=== PATIENT | female | born 2000 | race Caucasian/White ===

== ENCOUNTER 2022-12-30 14:12 | Day surgery (SDC) | payer OTHER ==
[2022-12-30 14:40] VITALS: BMI 23.0
[2022-12-30 15:50] LABS: Bilirubin Neg (Negative); Blood, Urine 25 (Negative); Clarity Cloudy (Clear); Glucose, Urine (Dipstick) Normal (Negative); Ketone, Urine Negative (Negative); Leukocyte 500 (Negative); Nitrite Negative (Negative); Protein, Urine (Dipstick) 30 mg/dl (Neg-Trace); Specific Gravity, Urine 1.015 (1.005-1.030); Urobilinogen Normal mg/dL (Less than 2)
[2022-12-30] MEDS ORDERED: hydrALAZINE 20 MG/ML VIAL SLOW IVP PRN (15:52)
[2022-12-30 16:04] LABS: Bacteria/HPF 3+ HPF (None Seen); CAUTI Indications for Culture Pregnancy; Mucous/LPF 3+ LPF (<2+)
[2022-12-30 16:06] LABS: Urine Culture Reflex Yes Yes
[2022-12-30] MEDS ORDERED: Nitrofurantoin Monohyd/M-Cryst 100 MG CAP PO SCH ×2 (18:00→21:00)
[2022-12-31] MEDS ORDERED: Nitrofurantoin Monohyd/M-Cryst 100 MG CAP PO SCH (09:00)
== END 2022-12-30 19:02 | disposition home or self-care (01) ==
LOC: CSHLD/OP 14:12
PROVIDERS: ATTEND Obstetrics & Gynecology
DX: O47.03 False labor before 37 completed weeks of gestation, third trimester (principal); O99.891 Other specified diseases and conditions complicating pregnancy; N89.8 Other specified noninflammatory disorders of vagina; R30.0 Dysuria; O99.343 Other mental disorders complicating pregnancy, third trimester; F32.A Depression, unspecified; F41.9 Anxiety disorder, unspecified; Z3A.35 35 weeks gestation of pregnancy; Z79.899 Other long term (current) drug therapy
CPT/HCPCS: 81001; 87086; 87480; 87510; 87660

== ENCOUNTER 2023-01-20 12:05 | Day surgery (SDC) | payer OTHER ==
[2023-01-20] MEDS ORDERED: Acetaminophen 500 MG TAB ONE (12:09)
[2023-01-20] MEDS ORDERED: Iron Sucrose Complex 500 MG in Sodium Chloride 0.9% 250 ML 250 ML IVPB SCH (12:30)
== END 2023-01-20 16:40 | disposition home or self-care (01) ==
LOC: CSHSDC 12:05
PROVIDERS: ATTEND Advanced Practice Midwife
DX: O99.019 Anemia complicating pregnancy, unspecified trimester (principal); D64.9 Anemia, unspecified; Z3A.00 Weeks of gestation of pregnancy not specified
CPT/HCPCS: 96365; 96366; J1756; J7050

== ENCOUNTER 2023-01-23 19:51 | Inpatient (IN) | payer OTHER ==
[2023-01-23 20:09] VITALS: BMI 25.4
[2023-01-23] MEDS ORDERED: hydrALAZINE 20 MG/ML VIAL SLOW IVP PRN ×2 (21:29→22:29)
[2023-01-23] MEDS ORDERED: Methylergonovine 0.2 MG/ML VIAL IM PRN (22:29)
[2023-01-23] MEDS ORDERED: Ondansetron PF 4 MG/2 ML Vial IVP PRN ×3 (22:29→23:33)
[2023-01-23] MEDS ORDERED: Tranexamic Acid 1,000 MG/10 ML VIAL IVP PRN (22:29)
[2023-01-23] MEDS ORDERED: Misoprostol 200 MCG TAB PR PRN (22:29)
[2023-01-23] MEDS ORDERED: Acetaminophen 500 MG TAB PO PRN (22:29)
[2023-01-23] MEDS ORDERED: Carboprost 250 MCG/ML AMP IM PRN (22:29)
[2023-01-23] MEDS ORDERED: Promethazine HCl 25 MG/ML VIAL IM PRN ×2 (22:29→23:33)
[2023-01-23] MEDS ORDERED: Diphenoxylate HCl/Atropine Tablet PO PRN (22:29)
[2023-01-23] MEDS ORDERED: Lactated Ringer's 1,000 ML IV SCH (22:30)
[2023-01-23] MEDS ORDERED: Oxytocin 30 units/NS 500 ML 500 ML IV SCH (22:30)
[2023-01-23 23:01] LABS: Hematocrit 27.6 % (34.9-44.5); Hemoglobin 9.2 g/dL (12.0-15.5); Mean Corpuscular HGB CONC 33.3 g/dL (32.0-36.0); Mean Corpuscular Hemoglobin 27.3 pg (27.0-33.0); Mean Corpuscular Volume 81.9 fl (81.6-98.3); Mean Platelet Volume 11.6 fl (7.4-10.4); Platelet Count 233 10x3/uL (150-450); RBC Distribution Width 12.5 % (11.5-14.5); Red Blood Cell (RBC) Count 3.37 10x6/uL (3.90-5.03); White Blood Cell (WBC) Count 14.1 10x3/uL (3.5-10.5)
[2023-01-23] MEDS ORDERED: Famotidine/PF 20 mg/2ml Vial SLOW IVP PRN (23:29)
[2023-01-23] MEDS ORDERED: Bicitra 30 ML UDCUP PO PRN (23:29)
[2023-01-23 23:30] LABS: HBSAg Index 0.22 S/CO (0-0.99); Hep B Surf Ag - L&D Non-Reactive S/CO (NonReactive)
[2023-01-23] MEDS ORDERED: CEFAZOLIN 2 GM VIAL ONE (23:30)
[2023-01-23] MEDS ORDERED: CEFAZOLIN 2 GM in Sodium Chloride 0.9% 100 ML IVPB SCH (23:30)
[2023-01-23 23:31] LABS: Syphilis Antibody Nonreactive (Nonreactive); Syphilis Antibody Index 0.03 S/CO (<1.00 Non-Reactive)
[2023-01-23] MEDS ORDERED: Naloxone HCl 0.4 mg/ml Vial IV PRN (23:33)
[2023-01-23] MEDS ORDERED: Meperidine HCl/PF 25 MG/ML VIAL SLOW IVP PRN (23:33)
[2023-01-23] MEDS ORDERED: diphenhydrAMINE 50 MG/ML VIAL IVP PRN (23:33)
[2023-01-23] MEDS ORDERED: Moisturizing Cream (Eucerin) 113 GM JAR TOP PRN (23:33)
[2023-01-23] MEDS ORDERED: Morphine 4 MG/ML VIAL SLOW IVP PRN (23:33)
[2023-01-23] MEDS ORDERED: Promethazine HCl 25 MG SUPP PR PRN (23:33)
[2023-01-23] MEDS ORDERED: Naloxone HCl 0.4 mg/ml Vial IVP PRN ×2 (23:33)
[2023-01-23] MEDS ORDERED: fentaNYL 50 mcg/mL 1 mL Vial SLOW IVP PRN (23:33)
[2023-01-23] MEDS ORDERED: Morphine PF 10 MG/10 ML VIAL ONE (23:37)
[2023-01-23] MEDS ORDERED: Oxytocin 10 UNITS/ML VIAL ONE (23:39)
[2023-01-23] MEDS ORDERED: PHENYLEPHRINE-NS 100 MCG/ML 10 ML SYRINGE ONE (23:39)
[2023-01-23] MEDS ORDERED: Ketorolac Tromethamine 30 MG/ML VIAL IVP SCH (23:45)
[2023-01-23] MEDS ORDERED: Communication Order-Pharmacy FS SCH (23:45)
[2023-01-24] MEDS ORDERED: Lactated Ringer's 1,000 ML IV SCH (00:01)
[2023-01-24] MEDS ORDERED: Ondansetron PF 4 MG/2 ML Vial ONE (00:06)
[2023-01-24] MEDS ORDERED: Dexamethasone 4 mg/ml Vial ONE (00:06)
[2023-01-24] MEDS ORDERED: Oxytocin 10 UNITS/ML VIAL ONE (00:13)
[2023-01-24] MEDS ORDERED: hydrALAZINE 20 MG/ML VIAL SLOW IVP PRN (01:21)
[2023-01-24] MEDS ORDERED: Lanolin Ointment 7 GM TUBE TOP PRN (01:21)
[2023-01-24] MEDS ORDERED: Boostrix 0.5 ML (Tdap) VIAL (>/=7 yrs of age) IM ONE ×2 (01:21→09:42)
[2023-01-24] MEDS ORDERED: diphenhydrAMINE 25 MG CAP PO PRN (01:21)
[2023-01-24] MEDS ORDERED: Acetaminophen 325 MG TAB PO PRN (01:21)
[2023-01-24 02:56] LABS: Bilirubin Neg (Negative); Blood, Urine Negative (Negative); Clarity Slightly Cloudy (Clear); Glucose, Urine (Dipstick) Normal (Negative); Ketone, Urine Negative (Negative); Leukocyte 500 (Negative); Nitrite Negative (Negative); Protein, Urine (Dipstick) Negative (Neg-Trace); Specific Gravity, Urine 1.005 (1.005-1.030); Urobilinogen Normal mg/dL (Less than 2)
[2023-01-24 03:09] LABS: RBC/HPF None Seen HPF (0-3)
[2023-01-24 03:10] LABS: Bacteria/HPF 2+ HPF (None Seen); Squamous Epithelial 0-3 HPF (0-3)
[2023-01-24] MEDS: Docusate 100 MG CAP PO SCH ×2 (08:48→21:14)
[2023-01-24] MEDS: Prenatal Vitamin 1 TAB PO SCH (08:48)
[2023-01-24] MEDS ORDERED: Ondansetron PF 4 MG/2 ML Vial IVP PRN (09:42)
[2023-01-24] MEDS ORDERED: Bisacodyl 10 MG SUPP PR PRN (09:42)
[2023-01-24] MEDS ORDERED: Misoprostol 200 MCG TAB PR PRN (09:42)
[2023-01-24] MEDS ORDERED: Simethicone Chewable 80 MG TAB PO PRN (09:42)
[2023-01-24] MEDS ORDERED: Ferrous Gluconate 324 MG TAB PO SCH (10:00)
[2023-01-24] MEDS ORDERED: HYDROcodone/Acetaminophen 5/325 mg Tablet PO PRN (11:45)
[2023-01-24] MEDS: Ketorolac Tromethamine 30 MG/ML VIAL IVP PRN ×2 (12:16→18:20)
[2023-01-24] MEDS ORDERED: Gentamicin Sulfate 320 MG in Sodium Chloride 0.9% 100 ML IVPB SCH (14:00)
[2023-01-24 14:09] LABS: #Eosinphils 0.1 10x3/uL (0.0-0.5); #Monocytes 1.6 10x3/uL (0.0-1.1); #Neutrophils 16.7 10x3/uL (1.5-8.4); %Basophils 0.1 % (0.0-2.0); %Eosinophils 0.3 % (0.0-6.0); %Lymphocytes 11.7 % (18.0-47.0); %Monocytes 7.5 % (0.0-10.0); %Neutrophils 79.9 % (40.0-75.0); Hematocrit 20.3 % (34.9-44.5); Hemoglobin 6.9 g/dL (12.0-15.5); Mean Corpuscular Volume 82.5 fl (81.6-98.3); Mean Platelet Volume 11.6 fl (7.4-10.4); Platelet Count 204 10x3/uL (150-450); RBC Distribution Width 12.5 % (11.5-14.5); Red Blood Cell (RBC) Count 2.46 10x6/uL (3.90-5.03); White Blood Cell (WBC) Count 20.9 10x3/uL (3.5-10.5)
[2023-01-24] MEDS: Clindamycin/D5W 900 MG in Premix 1 BAG IVPB SCH ×2 (14:15→21:14)
[2023-01-24] MEDS: SODIUM CHLORIDE 0.9% IVPB SCH (14:53)
[2023-01-24] MEDS: GENTAMICIN SULFATE IVPB SCH (14:53)
[2023-01-24 17:45] LABS: Bilirubin Neg (Negative); Blood, Urine Negative (Negative); Clarity Clear (Clear); Glucose, Urine (Dipstick) Normal (Negative); Ketone, Urine Negative (Negative); Leukocyte Negative (Negative); Nitrite Negative (Negative); Protein, Urine (Dipstick) Negative (Neg-Trace); Urobilinogen Normal mg/dL (Less than 2)
[2023-01-25] MEDS: HYDROcodone/Acetaminophen 5/325 mg Tablet PO PRN ×2 (00:15→21:42)
[2023-01-25 04:18] LABS: #Eosinphils 0.1 10x3/uL (0.0-0.5); #Monocytes 1.2 10x3/uL (0.0-1.1); #Neutrophils 11.6 10x3/uL (1.5-8.4); %Basophils 0.2 % (0.0-2.0); %Eosinophils 0.7 % (0.0-6.0); %Monocytes 7.6 % (0.0-10.0); %Neutrophils 71.8 % (40.0-75.0); Hematocrit 22.2 % (34.9-44.5); Hemoglobin 7.4 g/dL (12.0-15.5); Mean Corpuscular HGB CONC 33.3 g/dL (32.0-36.0); Mean Corpuscular Hemoglobin 26.7 pg (27.0-33.0); Mean Corpuscular Volume 80.1 fl (81.6-98.3); Mean Platelet Volume 10.5 fl (7.4-10.4); Platelet Count 195 10x3/uL (150-450); RBC Distribution Width 14.2 % (11.5-14.5); Red Blood Cell (RBC) Count 2.77 10x6/uL (3.90-5.03); White Blood Cell (WBC) Count 16.1 10x3/uL (3.5-10.5)
[2023-01-25] MEDS: Ibuprofen 800 MG TAB PO SCH ×3 (06:27→21:16)
[2023-01-25] MEDS: Clindamycin/D5W 900 MG in Premix 1 BAG IVPB SCH ×3 (06:28→21:20)
[2023-01-25] MEDS: Prenatal Vitamin 1 TAB PO SCH (09:56)
[2023-01-25] MEDS: Docusate 100 MG CAP PO SCH ×2 (09:56→21:15)
[2023-01-25] MEDS: SODIUM CHLORIDE 0.9% IVPB SCH (14:09)
[2023-01-25] MEDS: GENTAMICIN SULFATE IVPB SCH (14:09)
[2023-01-25] MEDS ORDERED: Clindamycin/D5W 900 mg/50 ml Premix Bag ONE (21:08)
[2023-01-26 04:08] LABS: #Eosinphils 0.2 10x3/uL (0.0-0.5); #Monocytes 0.9 10x3/uL (0.0-1.1); #Neutrophils 8.8 10x3/uL (1.5-8.4); %Basophils 0.3 % (0.0-2.0); %Eosinophils 1.7 % (0.0-6.0); %Lymphocytes 22.3 % (18.0-47.0); %Monocytes 6.9 % (0.0-10.0); Hematocrit 22.8 % (34.9-44.5); Hemoglobin 7.5 g/dL (12.0-15.5); Mean Corpuscular HGB CONC 32.9 g/dL (32.0-36.0); Mean Corpuscular Hemoglobin 26.6 pg (27.0-33.0); Mean Corpuscular Volume 80.9 fl (81.6-98.3); Mean Platelet Volume 11.3 fl (7.4-10.4); Platelet Count 196 10x3/uL (150-450); RBC Distribution Width 15.7 % (11.5-14.5); Red Blood Cell (RBC) Count 2.82 10x6/uL (3.90-5.03)
[2023-01-26] MEDS: Clindamycin/D5W 900 MG in Premix 1 BAG IVPB SCH (05:59)
[2023-01-26] MEDS: Ibuprofen 800 MG TAB PO SCH (05:59)
[2023-01-26 08:01] VITALS: BP 109/68; TEMP 97.7
[2023-01-26] MEDS ORDERED: Ferrous Gluconate 324 MG TAB PO SCH (09:00)
[2023-01-26] MEDS: Docusate 100 MG CAP PO SCH (09:43)
[2023-01-26] MEDS: Prenatal Vitamin 1 TAB PO SCH (09:43)
== END 2023-01-26 13:15 | disposition home or self-care (01) | DRG 786 ==
LOC: CSHERS 19:51 → CSHLD/OP 19:52 → CSHLD 22:54 → CSHPP 01-24 03:40
PROVIDERS: ADMIT Emergency Medicine; ATTEND Emergency Medicine
PROC: 10D00Z1 Extraction of Products of Conception, Low, Open Approach (ICD-10-PCS; principal; 2023-01-24)
DX: O76 Abnormality in fetal heart rate and rhythm complicating labor and delivery (principal); O75.3 Other infection during labor; O86.12 Endometritis following delivery; D62 Acute posthemorrhagic anemia; Z3A.39 39 weeks gestation of pregnancy; Z37.0 Single live birth; B96.89 Other specified bacterial agents as the cause of diseases classified elsewhere; O90.81 Anemia of the puerperium
CPT/HCPCS: 36415; 36430; 51702; 81001; 81003; 85025; 85027; 86780; 86850; 86900; 86901; 87040; 87086; 87340; 87480; 87510; 87660; 88307; 99285; J1100; J1580; J1885; J2274; J2405; J2590; J3490; P9016